=== PATIENT | female | born 1985 | race American Indian/Alaskan Native ===

== ENCOUNTER 2017-01-08 16:28 | Emergency (ER) | payer BC ==
[2017-01-08 16:49] VITALS: BP 134/74
[2017-01-08 17:30] LABS: Bacteria,Urine 2+ /HPF (Negative); Bilirubin,Urine NEG (Negative); Blood,Urine NEG (Negative); Ketones,Urine NEG (Negative); Leukocyte Esterase,Urine NEG (Negative); Mucus,Urine FEW /HPF; Nitrite,Urine NEG (Negative); Protein,Urine <15 mg/dL mg/dL (Negative); RBC,Urine < 1.0 /HPF (0.0-6.0); Urobilinogen,Urine < 2.0 mg/dL (<2.0)
[2017-01-08 17:32] LABS: Basophils % (Auto) 0.7 % (0.0-1.8); Eosinophils % (Auto) 1.8 % (0.0-4.3); Hematocrit 36.4 % (30.3-42.9); Hemoglobin 11.9 gm/dl (10.1-14.3); Mean Corpuscular HGB Conc 33 % (30-34); Mean Corpuscular Hemoglobin 27 pg (28-32); Mean Corpuscular Volume 83 fl (79-97); Platelet Count 248 K/mm3 (140-440); Red Blood Count 4.41 M/mm3 (3.65-5.03); Red Cell Distribution Width 13.9 % (13.2-15.2); White Blood Count 10.2 K/mm3 (4.5-11.0)
[2017-01-08 17:46] LABS: Anion Gap 19 mmol/L; BUN/Creatinine Ratio 33; Blood Urea Nitrogen 10 mg/dL (7-17); Carbon Dioxide 21 mmol/L (22-30); Chloride 97.4 mmol/L (98-107); Glucose 74 mg/dL (65-100); Potassium 4.2 mmol/L (3.6-5.0); Sodium 133 mmol/L (137-145)
[2017-01-08] MEDS ORDERED: NACL 0.9% 1000 ML 1,000 ML IV ONE (18:15)
[2017-01-08] MEDS ORDERED: NACL 0.9% 1000 ML 1,000 ML ONE (18:38)
--- NOTE | 2017-01-08 20:43 | Emergency Department Report ---
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 Patient felt lightheaded, dizzy and had mild shortness of breath with episode. She also reports a systolic blood pressure is 151 at the school. Patient denies pain including headache, chest pain, calf tenderness, edema, abdominal pain. Patient also denies vaginal bleeding, nausea, vomiting, diarrhea, or decreased by mouth intake. Patient received 1 L normal saline prior to my evaluation reports feeling better and only complains of being hungry. Only current medication is vitamins. Patient has had care including ultrasound during this . This is patient's first . July 2014 patient had a cardiac tilt test that was negative. She had echocardiogram showed an EF of 45-50% and 55-60% on TTE%, and mild MR, also mild [place] noted. - Related Data Allergies Allergy/AdvReac Type Severity Reaction Status Date / Time No Known Allergies Allergy Unverified 04/07/14 16:41 ED Review of Systems ROS: Stated complaint: DIZZINESS Other details as noted in HPI Comment: All other systems reviewed and negative Other: Constitutional: No fevers chills Eyes: No eye pain visual changes ENT: No ear pain or throat pain Neck: Denies pain Respiratory: Denies cough wheezing shortness of breath Cardiovascular: Denies chest pain, palpitations, syncope GI: Denies abdominal pain, nausea, vomiting, diarrhea : Denies dysuria Musculoskeletal: Denies back pain, Skin: Denies rash, lesions, erythema Neurologic: Denies headache, numbness, weakness Psychiatric: Denies suicidal ideation, hallucinations ED Past Medical Hx - Past Medical History Hx HIV: No Additional medical history: mitral valve prolapse - Surgical History Hx Breast Surgery: Yes (BENIGN MASS REMOVED 2008; left breast) Additional Surgical History: ganglion cyst, mass removed from L breast - Social History Smoking Status: Never Smoker Substance Use Type: None ED Physical Exam - General Limitations: No Limitations - Other Other exam information: General: No limitations, patient is alert in no acute distress Head exam: Atraumatic, normocephalic Eyes exam: Normal appearance ENT: Moist mucous membrane, normal oropharynx Neck exam: Normal inspection, full range of motion, no meningismus nontender Respiratory exam: Clear to auscultation bilateral, no wheezes, rales, crackles Cardiovascular: Normal rate and rhythm, normal heart sounds Abdomen: Soft, nondistended, and nontender, with normal bowel sounds, no rebound, or guarding. Gravid abdomen Extremity: Full range of motion normal inspection no deformity, no calf tenderness or edema Back: Normal Inspection, full range of motion, no tenderness Neurologic: Alert, oriented x3, cranial nerves intact, no motor or sensory deficit Psychiatric: normal affect, normal mood Skin: Warm, dry, intact ED Course Vital Signs 01/08/17 16:45 Temperature 97.9 F Pulse Rate 93 H Respiratory 18 Rate Blood Pressure 134/74 O2 Sat by Pulse 100 Oximetry - Reevaluation(s) Reevaluation #1: 01/08/17 20:42 Negative orthostatic vital signs after receiving 1 L of normal saline ED Medical Decision Making - Lab Data Result diagrams: 01/08/17 17:11 01/08/17 17:11 Lab Results 01/08/17 01/08/17 01/08/17 Range/Units 17:11 17:11 Unknown WBC 10.2 (4.5-11.0) K/mm3 RBC 4.41 (3.65-5.03) M/mm3 Hgb 11.9 (10.1-14.3) gm/dl Hct 36.4 (30.3-42.9) % MCV 83 (79-97) fl MCH 27 L (28-32) pg MCHC 33 (30-34) % RDW 13.9 (13.2-15.2) % Plt Count 248 (140-440) K/mm3 Lymph % (Auto) 21.3 (13.4-35.0) % [place] % (Auto) 8.4 H (0.0-7.3) % Eos % (Auto) 1.8 (0.0-4.3) % Baso % (Auto) 0.7 (0.0-1.8) % Lymph # 2.2 (1.2-5.4) K/mm3 [place] # 0.9 H (0.0-0.8) K/mm3 Eos # 0.2 (0.0-0.4) K/mm3 Baso # 0.1 (0.0-0.1) K/mm3 Seg Neutrophils % 67.8 (40.0-70.0) % Seg Neutrophils # 6.9 (1.8-7.7) K/mm3 Sodium 133 L (137-145) mmol/L Potassium 4.2 (3.6-5.0) mmol/L Chloride 97.4 L (98-107) mmol/L Carbon Dioxide 21 L (22-30) mmol/L Anion Gap 19 mmol/L BUN 10 (7-17) mg/dL Creatinine 0.3 L (0.7-1.2) mg/dL Estimated GFR > 60 ml/min BUN/Creatinine Ratio 33 % Glucose 74 (65-100) mg/dL Calcium 9.0 (8.4-10.2) mg/dL Urine Color Yellow (Yellow) Urine Turbidity Clear (Clear) Urine pH 6.0 (5.0-7.0) Ur Specific [place] 1.019 (1.003-1.030) Urine Protein <15 mg/dl (Negative) mg/dL Urine Glucose (UA) 50 (Negative) mg/dL Urine Ketones Neg (Negative) mg/dL Urine Blood Neg (Negative) Urine Nitrite Neg (Negative) Urine Bilirubin Neg (Negative) Urine Urobilinogen < 2.0 (<2.0) mg/dL Ur Leukocyte Esterase Neg (Negative) Urine WBC (Auto) 2.0 (0.0-6.0) /HPF Urine RBC (Auto) < 1.0 (0.0-6.0) /HPF U Epithel Cells (Auto) 1.0 (0-13.0) /HPF Urine Bacteria (Auto) 2+ (Negative) /HPF Urine Mucus Few /HPF - Medical Decision Making Patient complains of only transient shortness of breath that was mild during the lightheaded episode. No further shortness of breath reported prior to or after the near syncopal episode. Labs unremarkable with exception of mild hyponatremia which appears to be chronic since 2015. Patient will be provided a copy of her labs to follow up her PMD for further monitoring - Differential Diagnosis anemia, dehydration, infection, arrhythmia, PE Critical care attestation.: If time is entered above; I have spent that time in minutes in the direct care of this critically ill patient, excluding procedure time. ED Disposition Clinical Impression: Light-headed feeling Disposition: DC-01 TO HOME OR SELFCARE Is pt being admited?: No Does the pt Need Aspirin: No Condition: Stable Instructions: Lightheadedness (ED) Additional Instructions: Continue to drink plenty of fluids. Try to avoid prolonged standing. Follow- up your primary care doctor and [facility] doctor for further monitoring of your symptoms and lab results. You have been provided a copy of the lab results from today which includes a low sodium and chloride levels. You did receive 1 L of normal saline in the ED for further monitoring is needed Referrals: CLAUDIA SAEED MD [Primary Care Provider] - 3-5 Days you, air intelligence officer [Other] - 3-5 Days Time of Disposition: 20:45
== END 2017-01-08 21:05 | disposition home or self-care (01) ==
LOC: ED 16:28
DX: O26.892 Other specified pregnancy related conditions, second trimester (principal); R42 Dizziness and giddiness; Z3A.18 18 weeks gestation of pregnancy
CPT/HCPCS: 36415; 80048; 81001; 85025; 93005; 93010; 96360; 99283; J7030

== ENCOUNTER 2017-05-01 14:40 | Emergency (ER) | payer BC ==
[2017-05-01 14:58] VITALS: BP 124/74
[2017-05-01 16:41] LABS: Bacteria,Urine 1+ /HPF (Negative); Bilirubin,Urine NEG (Negative); Blood,Urine NEG (Negative); Color,Urine Yellow (Yellow); Mucus,Urine 1+ /HPF; Nitrite,Urine NEG (Negative); Protein,Urine <15 mg/dL mg/dL (Negative)
== END 2017-05-01 16:15 | disposition left against medical advice (07) ==
LOC: ED 14:40
DX: R42 Dizziness and giddiness (principal); Z53.21 Procedure and treatment not carried out due to patient leaving prior to being seen by health care provider
CPT/HCPCS: 81001

== ENCOUNTER 2017-06-13 20:16 | Inpatient (IN) | payer BC, OTHER ==
[2017-06-13] MEDS ORDERED: LACTATED RINGERS 1,000 ML ONE ×2 (21:43→23:07)
[2017-06-13] MEDS: LACTATED RINGERS 1,000 ML IV SCH ×2 (22:30→23:45)
[2017-06-13 23:57] LABS: Hematocrit 35.1 % (30.3-42.9); Hemoglobin 11.7 gm/dl (10.1-14.3); Mean Corpuscular HGB Conc 33 % (30-34); Mean Corpuscular Hemoglobin 28 pg (28-32); Mean Corpuscular Volume 84 fl (79-97); Platelet Count 209 K/mm3 (140-440); Red Blood Count 4.16 M/mm3 (3.65-5.03); Red Cell Distribution Width 13.7 % (13.2-15.2)
[2017-06-14] MEDS ORDERED: CERVIDIL VG ONE
[2017-06-14] MEDS: LACTATED RINGERS 1,000 ML IV SCH ×2 (06:11→09:53)
--- NOTE | 2017-06-14 07:41 | History and Physical Report ---
History of Present Illness Date of examination: 06/14/17 Date of admission: 06/13/17 20:16 History of present illness: 32yo LMP EDC 06/10/17 @ 40.4 weeks gestation. Presented for routine OB visit and BPP 6/8 with decreased FM.Received Cervidil at [place]. Pain 7/10 currently. First trimester entry into care. course complicated right ovarian cyst and anemia with iron BID. She is GBS negative. Past History Past Medical History: no pertinent history Past Surgical History: other (cyst removal) Family/Genetic History: none Social history: no significant social history, single - Obstetrical History Expected Date of Delivery: 06/10/17 Actual Gestation: 40 Week(s) 4 Day(s) : 1 Para: 0 Medications and Allergies Allergies Allergy/AdvReac Type Severity Reaction Status Date / Time No Known Allergies Allergy Unverified 04/07/14 16:41 Home Medications Medication Instructions Recorded Confirmed Last Taken Type Ferrous Sulfate [Feosol 325 MG tab] 1 tab PO BID 06/13/17 06/13/17 06/13/17 09: 30 History Pnv No.95/Ferrous Fum/Folic AC 1 tab PO QDAY 06/13/17 06/13/17 06/13/17 14:30 History [ Vitamins Tablet] Active Meds: Active Medications Lactated Ringer's (Lactated Ringers) 1,000 mls @ 125 mls/hr IV DIRECT GIOVANNY Last Admin: 06/14/17 06:11 Dose: 125 mls/hr Review of Systems All systems: negative - Vital Signs Vital signs: Vital Signs Pulse BP 75 133/82 06/13/17 20:41 06/13/17 20:41 Temp Pulse Resp BP Pulse Ox 98.6 F 80 18 130/70 99 06/14/17 03:59 06/14/17 07:35 06/14/17 03:59 06/14/17 07:35 06/14/17 04:00 - Physical Exam Breasts: Positive: deferred Lungs: Positive: Normal air movement Abdomen: Positive: normal appearance, soft - Obstetrical FHR: category 1 Uterine Contraction Monitor Mode: External Uterine Contraction Pattern: Regular Uterine Tone Measurement Phase: Resting Uterine Contraction Intensity: Moderate Results Result Diagrams: 06/13/17 23:00 All other labs normal. Assessment and Plan A: IUP at 40.4 weeks gestation Eqvoical BPP Category 1 tracing P: Remove Cervidil at noon
[2017-06-14] MEDS ORDERED: LACTATED RINGERS 1,000 ML IV SCH (08:00)
[2017-06-14] MEDS ORDERED: PITOCin/NS 30 UNIT/500ML 30 UNITS/500 ML BAG IV SCH ×2 (08:00)
[2017-06-14] MEDS ORDERED: PITOCin/NS 20 UNIT/1000ML DRIP 20 UNITS/1,000 ML BAG IV SCH (08:00)
[2017-06-14] MEDS ORDERED: MINERAL OIL PO PRN (08:00)
[2017-06-14] MEDS ORDERED: BRETHINE SUB-Q PRN (08:00)
[2017-06-14] MEDS ORDERED: STADOL IV PRN (08:00)
[2017-06-14] MEDS ORDERED: SUBLIMAZE IV PRN (08:00)
[2017-06-14] MEDS ORDERED: ePHEDrine SULFATE IV PRN ×2 (08:00→10:49)
[2017-06-14] MEDS ORDERED: BRETHINE IVP PRN (08:00)
[2017-06-14] MEDS ORDERED: XYLOCAINE 2% INFILTRATI NR (08:00)
--- NOTE | 2017-06-14 10:29 | Progress Note ---
Assessment and Plan O: Cervidil pulled A: IUP at 40.4 weeks gestation Post dates induction Active Labor P: Pitocin active bhanu't Subjective - Subjective Date of service: 06/21/17 Interval history: 32yo LMP EDC 06/10/17 @ 40.4 weeks gestation. Presented for routine OB visit and BPP 08/17 with decreased FM.Received Cervidil at [place]. Pain 09/18 currently. First trimester entry into care. course complicated right ovarian cyst and anemia with iron BID. She is GBS negative. Patient reports: new complaints (Pain with contractions), movement normal , contractions, no loss of fluid, no vaginal bleeding Objective - Vital Signs Vital Signs: Vital Signs - 12hr 06/13/17 06/13/17 06/13/17 23:01 23:06 23:11 Temperature Pulse Rate 87 75 79 Respiratory Rate Blood Pressure O2 Sat by Pulse 99 99 98 Oximetry 06/13/17 06/13/17 06/13/17 23:16 23:21 23:26 Temperature Pulse Rate 82 87 82 Respiratory Rate Blood Pressure O2 Sat by Pulse 97 98 98 Oximetry 06/13/17 06/13/17 06/13/17 23:31 23:36 23:41 Temperature Pulse Rate 78 74 79 Respiratory Rate Blood Pressure O2 Sat by Pulse 99 98 98 Oximetry 06/13/17 06/13/17 06/13/17 23:46 23:51 23:56 Temperature Pulse Rate 82 69 77 Respiratory Rate Blood Pressure O2 Sat by Pulse 98 98 98 Oximetry 06/14/17 06/14/17 06/14/17 00:01 00:06 00:11 Temperature Pulse Rate 68 69 86 Respiratory Rate Blood Pressure O2 Sat by Pulse 98 99 99 Oximetry 06/14/17 06/14/17 06/14/17 00:18 00:23 00:28 Temperature Pulse Rate 71 88 66 Respiratory Rate Blood Pressure O2 Sat by Pulse 100 99 99 Oximetry 06/14/17 06/14/17 06/14/17 00:29 00:33 00:34 Temperature 98.1 F Pulse Rate 82 76 Respiratory 18 Rate Blood Pressure 125/64 O2 Sat by Pulse 100 Oximetry 06/14/17 06/14/17 06/14/17 00:38 00:43 00:48 Temperature Pulse Rate 86 87 89 Respiratory Rate Blood Pressure O2 Sat by Pulse 99 98 99 Oximetry 06/14/17 06/14/17 06/14/17 00:53 00:58 01:03 Temperature Pulse Rate 81 70 75 Respiratory Rate Blood Pressure O2 Sat by Pulse 99 98 99 Oximetry 06/14/17 06/14/17 06/14/17 01:08 01:13 01:18 Temperature Pulse Rate 69 69 66 Respiratory Rate Blood Pressure O2 Sat by Pulse 98 98 99 Oximetry 06/14/17 06/14/17 06/14/17 01:23 01:28 01:33 Temperature Pulse Rate 70 73 77 Respiratory Rate Blood Pressure O2 Sat by Pulse 99 99 99 Oximetry 06/14/17 06/14/17 06/14/17 01:38 01:43 01:48 Temperature Pulse Rate 83 85 74 Respiratory Rate Blood Pressure O2 Sat by Pulse 99 99 99 Oximetry 06/14/17 06/14/17 06/14/17 01:53 01:58 02:03 Temperature Pulse Rate 78 77 78 Respiratory Rate Blood Pressure O2 Sat by Pulse 100 99 99 Oximetry 06/14/17 06/14/17 06/14/17 02:08 02:13 02:18 Temperature Pulse Rate 77 77 91 H Respiratory Rate Blood Pressure O2 Sat by Pulse 99 99 99 Oximetry 06/14/17 06/14/17 06/14/17 02:23 03:59 04:00 Temperature 98.6 F Pulse Rate 87 89 Respiratory 18 Rate Blood Pressure 114/77 O2 Sat by Pulse 100 99 Oximetry 06/14/17 06/14/17 06/14/17 07:35 07:48 09:57 Temperature 97.9 F Pulse Rate 80 78 Respiratory 17 Rate Blood Pressure 130/70 119/66 O2 Sat by Pulse Oximetry - Exam FHR: category 1 Uterine Contraction Monitor Mode: External Cervical Dilatation: 3.5 Cervical Effacement Percentage: 80 station: -1 Uterine Contraction Frequency (min): 2 Uterine Contraction Duration: 80-90 Uterine Contraction Pattern: Regular Uterine Tone Measurement Phase: Contraction Uterine Contraction Intensity: Moderate - Labs Labs: Laboratory Results - last 24 hr 06/13/17 06/13/17 23:00 23:00 WBC 8.3 RBC 4.16 Hgb 11.7 Hct 35.1 MCV 84 MCH 28 MCHC 33 RDW 13.7 Plt Count 209 Blood Type A POSITIVE Antibody Screen Negative
[2017-06-14] MEDS ORDERED: NARCAN 2 MG/2 ML IV PRN (10:49)
--- NOTE | 2017-06-14 10:49 | Anesthesia Consultation ---
Anesthesia Consult and Med Hx Date of service: 06/14/17 - Airway Anesthetic Teeth Evaluation: Good ROM Head & Neck: Adequate Mental/Hyoid Distance: Adequate Mallampati Class: Class II Intubation Access Assessment: Probably Good - Pre-Operative Health Status ASA Pre-Surgery Classification: ASA2 Proposed Anesthetic Plan: Epidural, Spinal - Pulmonary Hx Smoking: No Hx Asthma: No COPD: No Hx Pneumonia: No - Cardiovascular System Hx Hypertension: No - Central Nervous System Hx Seizures: No Hx Psychiatric Problems: No - Endocrine Hx Renal Disease: No Hx End Stage Renal Disease: No Hx Hypothyroidism: No Hx Hyperthyroidism: No - Hematic Hx Anemia: Yes (IRON BID) Hx Sickle Cell Disease: No - Other Systems Hx Alcohol Use: No Hx Cancer: No
[2017-06-14] MEDS ORDERED: fentaNYL-BUPIV 2 MCG/ML-0.125% 200 MCG/100 ML BAG EPIDURAL SCH (11:00)
[2017-06-14] MEDS ORDERED: XYLOCAINE MPF 2% ONE (11:38)
--- NOTE | 2017-06-14 12:23 | Procedure Note ---
OB Delivery Note - Delivery Date of Delivery: 06/14/17 (7-15oz male @ 1153) Surgeon: ROB LOMELI Estimated blood loss: 200cc - Vaginal Delivery presentation: vertex Delivery position: OA Delivery induction: cervidil Delivery augmentation: rupture of membranes, pitocin Delivery monitor: external FHT, external uterine Route of delivery: Delivery placenta: spontaneous Delivery cord: 3 umbilical vessels Episiotomy: none Delivery laceration: 1st degree (vaginal. Repaired with 3.[address] under epidural anethesia) Anesthesia: epidural - A at 1 minute: 8 at 5 minutes: 9 Gender: Male ( viable male, dried, stimulated to cry, placed skin to skin. Spont. placenta. Pitocin infusing. Bleeding scant. Repair as noted)
[2017-06-14] MEDS ORDERED: DULCOLAX PR PRN (12:24)
[2017-06-14] MEDS ORDERED: MILK OF MAGNESIA PO PRN (12:24)
[2017-06-14] MEDS ORDERED: LANSINOH TP PRN (12:24)
[2017-06-14] MEDS ORDERED: ZOFRAN IV PRN (12:24)
[2017-06-14] MEDS ORDERED: PHENERGAN PR PRN (12:24)
[2017-06-14] MEDS ORDERED: TYLENOL PO PRN (12:24)
[2017-06-14] MEDS ORDERED: PHENERGAN PO PRN (12:24)
[2017-06-14] MEDS ORDERED: TUCKS PAD TP PRN (12:24)
[2017-06-14] MEDS ORDERED: BENADRYL PO PRN (12:24)
[2017-06-14] MEDS ORDERED: SODIUM CHLORIDE FLUSH SYRINGE 10 ML IV NR (13:00)
[2017-06-14] MEDS: MOTRIN PO SCH (20:00)
[2017-06-15 02:28] LABS: Hematocrit 32.3 % (30.3-42.9); Hemoglobin 10.8 gm/dl (10.1-14.3)
[2017-06-15] MEDS: MOTRIN PO SCH (05:12)
[2017-06-15] MEDS ORDERED: BOOSTRIX IM ONE (06:00)
[2017-06-15] MEDS ORDERED: PRENATAL VITAMIN PO SCH (10:00)
--- NOTE | 2017-06-15 15:23 | Progress Note ---
Assessment and Plan A: PPD#1 s/p at term, requesting discharge today P: Discharge today per pt request. Subjective - Subjective Date of service: 06/15/17 Principal diagnosis: s/p at term Interval history: Pt without complaints. She is asking to go home today. Patient reports: appetite normal, voiding normally, pain well controlled, ambulating normally, no dizzy ambulation [place]: doing well Objective - Vital Signs Latest vital signs: Vital Signs Temp Pulse Resp BP BP Pulse Ox 06/15/17 11:50 98.3 F 79 20 109/63 97 06/15/17 07:55 98.2 F 84 20 116/77 97 06/15/17 00:45 98.2 F 79 18 124/75 97 06/14/17 21:45 98.6 F 82 18 129/78 98 06/14/17 16:18 80 117/71 98 Intake and Output 06/15/17 06/15/17 06/15/17 06:59 14:59 22:59 Intake Total 480 360 Balance 480 360 Intake: Oral 480 360 Other: Total, Intake Amount 240 240 # Voids Void 1 1 - Exam Breasts: Present: deferred Cardiovascular: Present: Regular rate Lungs: Present: Clear to auscultation Abdomen: Present: soft Uterus: Present: fundal height below umbilicus Extremities: Present: normal
--- NOTE | 2017-06-15 15:23 | Discharge Summary ---
Providers - Providers Date of Admission: 06/13/17 20:16 Date of discharge: 06/15/17 Attending physician: LEE INGRAM Primary care physician: LEE INGRAM Hospitalization Reason for admission: induction of labor Delivery: Procedure details: Please see delivery note. Episiotomy: none Laceration: 1st degree Other procedures: none complications: none Discharge diagnosis: IUP at term delivered [place] baby: male Hospital course: Pt was admitted for induction of labor and she ultimately had a vaginal delivery which she tolerated well. Her course was uncomplicated and she met discharge criteria on PPD#1. Condition at discharge: Stable Disposition: DC- TO HOME OR SELFCARE Plan - Discharge Medications Prescriptions: Ferrous Sulfate [Feosol 325 MG tab] 325 mg PO BID #60 tablet HYDROcodone/APAP 5-325 [[place] 5/325] 1 each PO Q6HR PRN #20 tablet PRN Reason: Pain Ibuprofen [Motrin] 800 mg PO Q8HR PRN #30 tablet PRN Reason: Pain - Provider Discharge Summary Activity: routine, no sex for 6 weeks, no heavy lifting 4 weeks, no strenuous exercise Diet: routine Instructions: routine Additional instructions: [] Smoking cessation referral if applicable(refer to patient education folder for contact #) [] Refer to [facility] Booklet Call your doctor immediately for: * Fever > 100.5 * Heavy vaginal bleeding ( >1 pad per hour) * Severe persistent headache * Shortness of breath * Reddened, hot, painful area to leg or breast * Drainage or odor from incision. * Keep incision clean and dry at all times and follow doctor's instructions regarding bathing/showering PLEASE SCHEDULE YOUR SON'S CIRCUMCISION BEFORE HE IS ONE MONTH OLD. - Follow up plan Follow up: ROB LOMELI CNM [Advanced Practice Nurse] - 07/12/17 (Please call for exam )
[2017-06-15 19:27] VITALS: BP 121/70
== END 2017-06-15 18:15 | disposition home or self-care (01) | DRG 775 ==
LOC: LD 20:16 → OB 06-14 14:47
PROVIDERS: ADMIT Obstetrics & Gynecology; ATTEND Obstetrics & Gynecology
PROC: 10E0XZZ Delivery of Products of Conception, External Approach (ICD-10-PCS; principal; 2017-06-14)
PROC: 3E0P7VZ Introduction of Hormone into Female Reproductive, Via Natural or Artificial Opening (ICD-10-PCS; 2017-06-14)
PROC: 0HQ9XZZ Repair Perineum Skin, External Approach (ICD-10-PCS; 2017-06-14)
PROC: 3E0R3BZ Introduction of Anesthetic Agent into Spinal Canal, Percutaneous Approach (ICD-10-PCS; 2017-06-14)
PROC: 00HU33Z Insertion of Infusion Device into Spinal Canal, Percutaneous Approach (ICD-10-PCS; 2017-06-14)
PROC: 3E0234Z Introduction of Serum, Toxoid and Vaccine into Muscle, Percutaneous Approach (ICD-10-PCS; 2017-06-15)
DX: O48.0 Post-term pregnancy (principal); O99.02 Anemia complicating childbirth; D64.9 Anemia, unspecified; O70.0 First degree perineal laceration during delivery; Z3A.40 40 weeks gestation of pregnancy; Z37.0 Single live birth; Z23 Encounter for immunization; O34.83 Maternal care for other abnormalities of pelvic organs, third trimester; N83.201 Unspecified ovarian cyst, right side
CPT/HCPCS: 36415; 59200; 85014; 85018; 85027; 86592; 86850; 86900; 86901; 90471; 90715; 99211; A6250; G0463; J0595; J2590; J7120